=== PATIENT | male | born 1970 | race Caucasian/White ===

== ENCOUNTER 2021-10-16 00:07 | Emergency (ER) | payer BC, OTHER ==
[2021-10-16 00:26] VITALS: BP 186/88; PULSE 65; RESP 16; TEMP 97.8
[2021-10-16] MEDS ORDERED: SODIUM CHLORIDE 0.9% 1,000 ML IV STA (01:20)
[2021-10-16] MEDS ORDERED: ACETAMINOPHEN IV (For NPO) 1,000 MG in SALINE 100 100ML.BAG IVPB STA (01:21)
--- NOTE | 2021-10-16 01:22 | ED ---
Abdominal Pain HPI - General Chief Complaint: Abdominal Pain Stated Complaint: Kidney pain Time Seen by Provider: 10/16/21 01:13 Source: patient, RN notes reviewed Mode of arrival: ambulatory Limitations: no limitations - History of Present Illness Initial Comments: This is a pleasant 51-year-old male who comes the ER complaining of left flank pain and left back pain for the past 4 hours. Patient states pain is a combination of dull and sharp, constant, waxes and wanes in intensity, did have some nausea when the pain was at its worst. It radiates into the side somewhat but not around to the groin. Chest pain or shortness of breath. No hematuria. Patient states he was fine prior to onset of pain. 2 ibuprofen prior to arrival. No headache, no fever or chills, no changes in vision or hearing, no sore throat or difficulty with speech, no neck pain, no chest pain or shortness of breath, no abdominal pain, no nausea or vomiting, no changes in urination or bowel movements, no numbness or tingling, no extremity pain, no skin rashes or lesions. - Related Data Previous Rx's Medication Instructions Recorded HYDROcodone/APAP 5-325MG [[place] 1 tab PO Q6HR PRN 3 Days #12 tab 10/16/21 5-325] Ketorolac [Toradol] 10 mg PO Q6HR PRN #16 tab 10/16/21 Ondansetron [Zofran ODT] 4 mg PO Q8HR #10 tab 10/16/21 Tamsulosin [Flomax] 0.4 mg PO DAILY #5 cap 10/16/21 Allergies Allergy/AdvReac Type Severity Reaction Status Date / Time No Known Allergies Allergy Verified 10/16/21 00:26 Review of Systems ROS Statement: Those systems with pertinent positive or pertinent negative responses have been documented in the HPI. ROS Other: All systems not noted in ROS Statement are negative. Past Medical History Past Medical History: No Reported History History of Any Multi-Drug Resistant Organisms: None Reported Past Surgical History: No Surgical Hx Reported Past Psychological History: No Psychological Hx Reported Smoking Status: Never smoker Past Alcohol Use History: Occasional Past Drug Use History: None Reported General Exam - General Exam Comments Initial Comments: 51-year-old male in mild distress. Patient does not appear to be ill or toxic. Vital signs reviewed Limitations: no limitations General appearance: alert, in distress Head exam: Present: atraumatic, normocephalic, normal inspection Eye exam: Present: normal appearance, PERRL, EOMI. Absent: scleral icterus, conjunctival injection, periorbital swelling ENT exam: Present: normal exam, mucous membranes moist Neck exam: Present: normal inspection, full ROM. Absent: tenderness, m eningismus, lymphadenopathy Respiratory exam: Present: normal lung sounds bilaterally. Absent: respiratory distress, wheezes, rales, rhonchi, stridor Cardiovascular Exam: Present: regular rate, normal rhythm, normal heart sounds. Absent: systolic murmur, diastolic murmur, rubs, gallop, clicks GI/Abdominal exam: Present: soft, normal bowel sounds. Absent: distended, tenderness, guarding, rebound, rigid Extremities exam: Present: normal inspection, full ROM, normal capillary refill. Absent: tenderness, pedal edema, joint swelling, calf tenderness Back exam: Present: normal inspection Neurological exam: Present: alert, oriented X3, CN II-XII intact Psychiatric exam: Present: normal affect, normal mood Skin exam: Present: warm, dry, intact, normal color. Absent: rash Course Vital Signs 10/16/21 00:22 Temperature 97.8 F Pulse Rate 65 Respiratory 16 Rate Blood Pressure 186/88 O2 Sat by Pulse 96 Oximetry - Reevaluation(s) Reevaluation #1: 10/16/21 02:49 Medical record is reviewed Symptoms are improved here in the emergency department Patient is informed of results and questions answered Patient in no distress Medical Decision Making - Medical Decision Making Patient computed tomography scan shows evidence of a left ureteropelvic ureteral stone with hydronephrosis. No hydroureter. Stone is 5 mm. Patient was told to return to the ER for any signs or symptoms worsen. Told to return immediately if any other problems arise. All questions answered. Treatment plan discussed. Patient in agreement Every effort has been made to ensure accuracy of this dictation. However, due to the limitations of electronic medical records and dictation devices, errors in charting still occur. Patient given urological follow-up, short course of [place] 5/325, Flomax, ketorolac. The case was discussed in detail with ED attending physician. Presentation, findings, treatment plan discussed in detail. - Lab Data Result diagrams: 10/16/21 02:03 10/16/21 02:03 Lab Results 10/16/21 10/16/21 10/16/21 Range/Units 00:27 02:03 02:03 WBC 9.8 (3.8-10.6) k/uL RBC 5.06 (4.30-5.90) m/uL Hgb 15.7 (13.0-17.5) gm/dL Hct 46.0 (39.0-53.0) % MCV 90.8 (80.0-100.0) fL MCH 31.1 (25.0-35.0) pg MCHC 34.2 (31.0-37.0) g/dL RDW 12.4 (11.5-15.5) % Plt Count 213 (150-450) k/uL MPV 7.7 Neutrophils % 75 % Lymphocytes % 18 % Monocytes % 5 % Eosinophils % 1 % Basophils % 1 % Neutrophils # 7.3 (1.3-7.7) k/uL Lymphocytes # 1.7 (1.0-4.8) k/uL Monocytes # 0.5 (0-1.0) k/uL Eosinophils # 0.1 (0-0.7) k/uL Basophils # 0.1 (0-0.2) k/uL Sodium 138 (137-145) mmol/L Potassium 4.7 (3.5-5.1) mmol/L Chloride 105 (98-107) mmol/L Carbon Dioxide 27 (22-30) mmol/L Anion Gap 6 mmol/L BUN 23 H (9-20) mg/dL Creatinine 1.08 (0.66-1.25) mg/dL Est GFR (CKD-EPI)AfAm >90 (>60 ml/min/1.73 sqM) Est GFR (CKD-EPI)NonAf 78 (>60 ml/min/1.73 sqM) Glucose 108 H (74-99) mg/dL Calcium 9.2 (8.4-10.2) mg/dL Total Bilirubin 0.8 (0.2-1.3) mg/dL AST 41 (17-59) U/L ALT 35 (4-49) U/L Alkaline Phosphatase 56 (38-126) U/L Total Protein 7.2 (6.3-8.2) g/dL Albumin 4.2 (3.5-5.0) g/dL Urine Color Yellow Urine Appearance Clear (Clear) Urine pH 6.0 (5.0-8.0) Ur Specific [place] 1.026 (1.001-1.035) Urine Protein Trace H (Negative) Urine Glucose (UA) Negative (Negative) Urine Ketones Negative (Negative) Urine Blood Large H (Negative) Urine Nitrite Negative (Negative) Urine Bilirubin Negative (Negative) Urine Urobilinogen <2.0 (<2.0) mg/dL Ur Leukocyte Esterase Negative (Negative) Urine RBC >182 H (0-5) /hpf Urine WBC 1 (0-5) /hpf Urine Bacteria Rare H (None) /hpf Urine Mucus Rare H (None) /hpf Urine Yeast (Budding) Occasional H (None) /hpf - Radiology Data Radiology results: report reviewed, image reviewed Disposition Clinical Impression: Ureteral calculus, left, Hydronephrosis Disposition: HOME SELF-CARE Condition: Good Additional Instructions: Follow-up with your regular physician as directed. Return to the ER immediately if any symptoms worsen, new symptoms arise, or any other problems develop. Make a follow-up appointment with either your regular physician or the urologist as discussed. Strain your urine and collect the stone if possible. Take it to your appointment for analysis Prescriptions: Tamsulosin [Flomax] 0.4 mg PO DAILY #5 cap HYDROcodone/APAP 5-325MG [[place] 5-325] 1 tab PO Q6HR PRN 3 Days #12 tab PRN Reason: Pain Ketorolac [Toradol] 10 mg PO Q6HR PRN #16 tab PRN Reason: Pain Ondansetron [Zofran ODT] 4 mg PO Q8HR #10 tab Is patient prescribed a controlled substance at d/c from ED?: Yes When asked, does pt state using other controlled substances?: No If prescribed controlled substance>3 days was MAPS reviewed?: Yes If opioid is for acute pain is fill amount 7 days or less?: No If Rx opioid, was Start Talking consent form obtained?: Yes Referrals: Dashawn Horvath MD [STAFF PHYSICIAN] - 10/19/21 Time of Disposition: 02:51
[2021-10-16 02:08] LABS: Appearance,Urine Clear (Clear); Bacteria,Urine Rare /hpf; Bilirubin,Urine Negative (Negative); Blood,Urine Large (Negative); Budding Yeast,Urine Occasional /hpf; Color,Urine Yellow; Glucose,Urine (UA) Negative (Negative); Ketones,Urine Negative (Negative); Leukocyte Esterase,Urine Negative (Negative); Mucus,Urine Rare /hpf; Nitrite,Urine Negative (Negative); Protein,Urine Trace (Negative); RBC,Urine >182 /hpf (0-5); Specific Gravity,Urine 1.026 (1.001-1.035); Urobilinogen,Urine <2.0 mg/dL (<2.0); WBC,Urine 1 /hpf (0-5)
--- NOTE | 2021-10-16 02:18 | CT ---
EXAMINATION TYPE: CT abdomen pelvis wo con DATE OF EXAM: 10/16/2021 COMPARISON: None HISTORY: left flank pain. no prior on PACS CT DLP: 1712.4 mGycm Automated exposure control for dose reduction was used. Images obtained from the diaphragm to the floor the pelvis with no contrast. Lung bases are clear. There is no pleural effusion. Heart is borderline enlarged. There is no pericar dial effusion. Liver and spleen are intact. Gallbladder appears normal. The bile ducts are not dilated. Stomach is i ntact. There is no pancreatic mass. There is no adrenal mass. Kidneys have normal size. There is left-sided hydronephrosis. There is a 5 mm obstructing calculus at the left ureteropelvic junction. The ureters are not dilated. Right kidney shows no evidence of obst ruction. There is no retroperitoneal adenopathy. The bladder is distended and smoothly. There is no i nguinal hernia. There is no free fluid in the pelvis. There is no pelvic mass. Appendix not seen. No sign of thickened appendix. Terminal ileum appears fairly normal. There is no mesenteric edema. There is no ascites or free air. There is no evidence of bowel obstruct ion. The lumbar vertebrae have normal alignment. There is no compression fracture. Posterior elements are intact. Facet joints are intact. Bony pelvis is intact. IMPRESSION: Obstructing calculus at the left ureteropelvic junction with left-sided hydronephrosis. No other calc ulus seen..
[2021-10-16 02:43] LABS: Basophils # (A) 0.1 k/uL (0-0.2); Basophils % (A) 1 %; Eosinophils # (A) 0.1 k/uL (0-0.7); Eosinophils % (A) 1 %; HGB 15.7 gm/dL (13.0-17.5); Lymphocytes # (A) 1.7 k/uL (1.0-4.8); Lymphocytes % (A) 18 %; MCH 31.1 pg (25.0-35.0); MCHC 34.2 g/dL (31.0-37.0); MCV 90.8 fL (80.0-100.0); Mean Platelet Volume 7.7; Monocytes # (A) 0.5 k/uL (0-1.0); Monocytes % (A) 5 %; Neutrophils # (A) 7.3 k/uL (1.3-7.7); Neutrophils % (A) 75 %; Platelet Count 213 k/uL (150-450); RBC 5.06 m/uL (4.30-5.90); RDW 12.4 % (11.5-15.5); WBC 9.8 k/uL (3.8-10.6)
[2021-10-16] MEDS ORDERED: KETOROLAC 15 MG/ML 1 ML VIAL IVP STA (02:46)
[2021-10-16] MEDS ORDERED: TAMSULOSIN 0.4 MG CAP.ER.24H PO STA (02:47)
[2021-10-16 02:50] LABS: ALT 35 U/L (4-49); AST 41 U/L (17-59); African American GFR (CKD) >90 (>60 ml/min/1.73 sqM); Albumin 4.2 g/dL (3.5-5.0); Alkaline Phosphatase 56 U/L (38-126); Anion Gap 6 mmol/L; Blood Urea Nitrogen 23 mg/dL (9-20); Calcium 9.2 mg/dL (8.4-10.2); Carbon Dioxide 27 mmol/L (22-30); Chloride 105 mmol/L (98-107); Glucose 108 mg/dL (74-99); Non-African American GFR(CKD) 78 (>60 ml/min/1.73 sqM); Potassium 4.7 mmol/L (3.5-5.1); Sodium 138 mmol/L (137-145); Total Bilirubin 0.8 mg/dL (0.2-1.3); Total Protein 7.2 g/dL (6.3-8.2)
== END 2021-10-16 03:34 | disposition home or self-care (01) ==
LOC: EC 00:07
DX: N20.1 Calculus of ureter (principal); N13.30 Unspecified hydronephrosis
CPT/HCPCS: 99284; 96365; 96366; 96375; 36415; 80053; 85025; 81001; 74176; J0131; J1885

== ENCOUNTER → 2021-10-17 | Outpatient (CLI) | payer BC ==
--- NOTE | 2021-10-17 10:11 | XR ---
EXAMINATION TYPE: XR KUB DATE OF EXAM: 10/17/2021 HISTORY: Pain Comparison: None.Single KUB is submitted for interpretation. Findings: Right renal calculi: None Visualized. Right ureteral calculi: None Visualized. Left renal calculi: None Visualized. Left ureteral calculi: 6.2 mm calculus left UPJ. Pelvic calcifications: None Visualized. Bowel gas pattern is unremarkable. No free air. No mass effects. IMPRESSION: 1. 6.2 mm calculus left UPJ.
== END | disposition home or self-care (01) ==
LOC: RADXRMAIN 09:28
PROVIDERS: ATTEND Urology
DX: N20.1 Calculus of ureter (principal)
CPT/HCPCS: 74018

== ENCOUNTER 2021-10-25 12:53 | Day surgery (SDC) | payer BC ==
[2021-10-22 15:10] VITALS: BMI 37.7
--- NOTE | 2021-10-24 10:12 | P.HPIHPCON ---
History of Present Illness H&P Date: 10/24/21 Chief Complaint: left ureteral stone This 51 yo male with hx of 7 mm left sided UPJ stone. He is symptomatic from his stone. Discussed with him option of ESWL vs ureteroscopy with holmium laser. risk and benefit of surgery were discussed in details. He agreed to proceed with left-sided ureteroscopy with holmium laser lithotripsy. Discussed the risk which includes but not limited to bleeding, infection, injury to the ureter, potential of needing additional procedures. Risk from anesthesia were also discussed with him. He understood all the risk and agreed to proceed Consent for Procedure: I have explained the operation/procedure to the patient, including the risks, benefits, side effects, alternative therapies (including not receiving the proposed treatment or service), the likelihood of the patient achieving his/her goals, and potential recuperation problems for the procedure/sedation/analgesia, as well as any blood products, if indicated. I also explained to the patient the risks, benefits and side effects of the alternatives, as well as the risks related to not receiving the proposed procedure, care, treatment, or services. - Constitutional Constitutional: Denies chills, Denies fever - Cardiovascular Cardiovascular: Denies chest pain, Denies shortness of breath - Gastrointestinal Gastrointestinal: Denies abdominal pain, Denies diarrhea, Denies nausea, Denies vomiting - Genitourinary (Female) Genitourinary: Reports flank pain Past Medical History Past Medical History: No Reported History Additional Past Medical History / Comment(s): Kidney stones History of Any Multi-Drug Resistant Organisms: None Reported Past Surgical History: Ear Surgery Past Anesthesia/Blood Transfusion Reactions: No Reported Reaction Past Psychological History: No Psychological Hx Reported Smoking Status: Never smoker Past Alcohol Use History: Occasional Past Drug Use History: None Reported - Past Family History Father Additional Family Medical History / Comment(s): kidney stones Medications and Allergies Home Medications Medication Instructions Recorded Confirmed Type No Known Home Medications 10/22/21 10/22/21 History Allergies Allergy/AdvReac Type Severity Reaction Status Date / Time No Known Allergies Allergy Verified 10/22/21 15:03 Surgical - Exam - General no distress, moderate pain - Eyes normal ocular movement - Respiratory normal expansion, normal respiratory effort - Abdomen Abdomen: soft, non tender Assessment and Plan Assessment: OR for left sided ureteroscopy with laser lithotripsy stone basketing and stent insertion
[~2021-10-25 12:53] MED LIST: DEXAMETHASONE SOD PHOSPHATE 4 MG/ML 1 ML VIAL IV ONE; HYDROmorphone 0.5 MG/0.5 ML SYRINGE IVP PRN; LACTATED RINGERS 1,000 ML IV SCH; LIDOCAINE 1% (10MG/ML) FOR IV START INTRADERMA PRN; ONDANSETRON 4 MG/2 ML VIAL IVP PRN
--- NOTE | 2021-10-25 13:14 | XR ---
EXAMINATION TYPE: XR KUB DATE OF EXAM: 10/25/2021 HISTORY: Pain Comparison: 10/17/2021 Single KUB is submitted for interpretation. Findings: Right renal calculi: None Visualized. Right ureteral calculi: None Visualized. Left renal calculi: None Visualized. Left ureteral calculi: 6.5 mm calculus at the level of the left UVJ. Pelvic calcifications: None Visualized. Bowel gas pattern is unremarkable. No free air. No mass effects. IMPRESSION: 1. 6.5 mm calculus at the level of the left UVJ.
[2021-10-25] MEDS ORDERED: LIDOCAINE 1% (10MG/ML) FOR IV START INTRADERMA ONE (14:05)
[2021-10-25] MEDS ORDERED: SUCCINYLCHOLINE CHLORIDE VIAL 200 MG/10 ML VIAL IV ONE (15:57)
[2021-10-25] MEDS ORDERED: fentaNYL (PF) 50 MCG/ML 2 ML AMP ONE (15:57)
[2021-10-25] MEDS ORDERED: PROPOFOL 10 MG/ML 20 ML VIAL IV ONE (15:57)
[2021-10-25] MEDS ORDERED: LIDOCAINE 1% INJ 10MG/ML (20 ML MDV) ONE (15:57)
[2021-10-25] MEDS ORDERED: ROCURONIUM 10 MG/ML (5 ML VIAL) IV ONE (15:57)
[2021-10-25] MEDS ORDERED: MIDAZOLAM 2 MG/2 ML VIAL ONE (15:57)
[2021-10-25] MEDS ORDERED: KETOROLAC 15 MG/ML 1 ML VIAL ONE (15:57)
--- NOTE | 2021-10-25 16:45 | P.OP ---
Date of Procedure: 10/25/21 Preoperative Diagnosis: Left ureteral stone Postoperative Diagnosis: Bladder stone Procedure(s) Performed: Cystolitholapaxy( <2.5 cm) and left ureteroscopy, Implants: None Anesthesia: DANYAA Surgeon: Dashawn Horvath Estimated Blood Loss (ml): 0 Pathology: none sent (bladder stone) Condition: stable Disposition: PACU Indications for Procedure: This 51 yo male with hx of 7 mm left sided UPJ stone. He is symptomatic from his stone. Discussed with him option of ESWL vs ureteroscopy with holmium laser. risk and benefit of surgery were discussed in details. He agreed to proceed with left-sided ureteroscopy with holmium laser lithotripsy. Discussed the risk which includes but not limited to bleeding, infection, injury to the ureter, potential of needing additional procedures. Risk from anesthesia were also discussed with him. He understood all the risk and agreed to proceed Operative Findings: The previous ureteral stone appeared to be in the bladder Description of Procedure: Patient was brought to the operating room, general anesthesia was induced. He was prepped and draped in sterile fashion and placed in dorsal lithotomy position. Cystoscopy fitted with a 21-[place] sheath was inserted per urethra, cystoscopy was performed which showed no abnormality within the bladder. But of note a large stone was encountered in the bladder. I attempted to irrigate the stone out but it was too large to pass through the scope. At this time using the holmium laser the stone was fragmented into multiple pieces, the pieces were irrigated out and sent to pathology. Repeat cystoscopy showed no sizable stone fragments or any additional stones. It appeared that the bladder stone was the ureteral stone but it has passed into the bladder. At this time the cystoscope was withdrawn and a semirigid ureteroscope was inserted, this was advanced up the left ureteral orifice, this was advanced all the way up to the UPJ, the ureter was dilated but there was no evidence of any stone, the finding was consistent with a recently passed stone. Pullback ureteroscopy was performed wgicg showed no stone or injury to the kidney. The bladder was emptied and the end of the case. Patient tolerated the procedure well was taken to recovery in stable condition
[2021-10-25 16:48] VITALS: TEMP 97.6
--- NOTE | 2021-10-25 16:51 | FL ---
Intraoperative fluoroscopic services were provided for cystogram for left-sided stone. Total fluorosc opy time is 1.1 seconds with a total of 1 submitted images to PACS. Please see the operative note for further details.
[2021-10-25 17:27] VITALS: RESP 18
[2021-10-25 17:54] VITALS: BP 1234/77; PULSE 70
== END 2021-10-25 18:10 | disposition home or self-care (01) ==
LOC: OR 12:53
PROVIDERS: ATTEND Urology
DX: N20.1 Calculus of ureter (principal)
CPT/HCPCS: 52317; 82365; 74018; C1769; J2250; J0330; J1100; J0690; J2405; J2001; J3010; J1885; J2704

== ENCOUNTER 2024-03-27 14:31 | Emergency (ER) | payer BC ==
[2024-03-27] MEDS ORDERED: KETOROLAC 15 MG/ML 1 ML VIAL ONE (15:19)
[2024-03-27] MEDS ORDERED: DIPH,PERTUS(ACELL)TETVAC-LF 0.5 ML VIAL IM ONE (15:20)
[2024-03-27] MEDS ORDERED: CYCLOBENZAPRINE 10MG STARTER 3 TAB BTL ONE (16:58)
[2024-03-27] MEDS ORDERED: ACET/COD 300 MG/30 MG STARTER PACK 6 TAB BTL PO ONE (16:58)
--- NOTE | 2024-04-28 08:48 | XR ---
Patient Leena Tavo ID [id number] Order # EXAMINATION TYPE: XR ribs RT w pa chest xray DATE OF EXAM: 03/27/2024 COMPARISON: No comparison available on downtime PACS. HISTORY: Fall, pain TECHNIQUE: 2 view right ribs. Exam is supplemented with an PA chest FINDINGS: The heart size is normal. The pulmonary vasculature is normal. The lungs are clear. No pneu mothorax is evident. The anterior right fourth rib may have a subtle fracture. No additional fractures identified. IMPRESSION: 1. Suspected anterior lateral right fourth rib fracture
--- NOTE | 2024-04-28 08:49 | XR ---
Patient Leena Tavo ID [id number] Order # EXAMINATION TYPE: XR shoulder complete LT DATE OF EXAM: 03/27/2024 COMPARISON: No comparison available on downtime PACS. HISTORY: Pain TECHNIQUE: Right Shoulder examined in 3 projections. FINDINGS: The humeral head articulates with the glenoid. The acromio-clavicular junction is normal. No acute fractures or dislocations are evident. A follow up study can be performed 7-10 days from acute trauma for continued pain. MRI can be perfor med if soft tissue evaluation would be of benefit. IMPRESSION: 1. No acute osseous right shoulder abnormality.
== END 2024-03-27 17:30 | disposition home or self-care (01) ==
LOC: EC 14:31
CPT/HCPCS: 90471; 90715; 99283